=== PATIENT | male | born 1965 | race Caucasian/White ===

== ENCOUNTER 2017-01-07 08:33 | Emergency (ER) | payer MEDICAID, OTHER ==
[~2017-01-07] VITALS: Ht 170.2 cm; Wt 98.5 kg
[2017-01-07 08:42] VITALS: Ht 170.2 cm; Wt 98.5 kg
[2017-01-07] MEDS ORDERED: KETOROLAC 30 MG INJ IV STA (09:36)
[2017-01-07] MEDS ORDERED: SOD CHLORIDE 0.9% 1,000 ML IV ONE (10:00)
[2017-01-07] MEDS ORDERED: DIPHENHYDRAMINE 50 MG INJ IV ONE (10:00)
[2017-01-07] MEDS ORDERED: METOCLOPRAMIDE 10 MG INJ IV ONE (10:00)
--- NOTE | 2017-01-07 10:07 | RADRPT ---
PROCEDURE: CT brain without contrast CLINICAL INDICATION: Headache, blurry vision TECHNIQUE: CT of the brain without contrast was performed on a multidetector CT scanner, with multi planar reformats. One or more of the following dose reduction techniques were used: Automated expos ure control, adjustment in mA and / or kV according to patient size, use of iterative reconstructive technique. CTDIvol = 44 mGy; DLP = 720 mGy-cm. COMPARISON: None available FINDINGS: No acute intracranial hemorrhage is identified. No extra-axial fluid collection is seen. There is no mass effect. No midline shift is identified. Ventricles and sulci are within normal limits for size and configuration. The density of the brain is within normal limits. Sarabia-white differentiation is preserved. Atheros clerotic calcifications are seen at the intracranial internal carotid arteries. Osseous structures are unremarkable. Mastoid air cells and imaged paranasal sinuses grossly clear. IMPRESSION: No evidence of acute intracranial pathology. RPTAT: VV .Krystian Anne MD, Date Time Electronically viewed and signed by .Krystian Anne MD, on 01/07/2017 10:07 .O/
--- NOTE | 2017-01-07 10:45 | ERD ---
ER Documentation Chief Complaint Date/Time DATE: 01/07/17 TIME: 10:43 Chief Complaint CHRONIC HEADACHE TO RIGHT SIDE. NO TRAUMA. HPI This is a 51-year-old male presents emergency department for headache 1 year patient states he has had daily. Headaches for the past year mainly to the right side of his head. Pain radiates down to his neck. Patient is also had blurry vision for the past 2-3 months. Denies any numbness or tingling. No loss of sensation to extremities. Denies any weakness or facial droop. No chest pain, shortness of breath or difficulty breathing. No change in mood or behavior. No injury or trauma to head. Patient has not been seen by provider for this yet. ROS All systems reviewed and are negative except as per history of present illness. Medications Home Meds Active Scripts Ntmoyurribfrx-Llsdeevabg-Upikrpys-Codeine* (Fioricet w/Codeine*) [id number] -30MG Cap, 1 CAP PO Q4H Y for PAIN LEVEL 1-5, #10 CAP Prov:CHARLEY DIAZ NP 01/07/17 Allergies Allergies: Coded Allergies: No Known Allergy (Unverified , 01/07/17) PMhx/Soc Medical and Surgical Hx: pt denies Medical Hx, pt denies Surgical Hx Physical Exam Vitals Vital Signs Date Time Temp Pulse Resp B/P Pulse Ox O2 Delivery O2 Flow Rate FiO2 01/07/17 12:02 60 18 112/66 98 Room Air 01/07/17 08:42 98.7 68 19 135/79 99 Physical Exam Const: No acute distress, alert and smiling during exam. Oriented to person place and time. Head: Atraumatic Eyes: Normal Conjunctiva, PERRL, EOMs intact, no nystagmus, ENT: Normal External Ears, Nose and Mouth. Neck: Full range of motion..~ No meningismus. Resp: Clear to auscultation bilaterally. No wheezing, rhonchi or crackles. No stridor or labored breathing. Cardio: Regular rate and rhythm, no murmurs Abd: Soft, non tender, non distended. Normal bowel sounds Skin: No petechiae or rashes Back: No midline or flank tenderness Ext: No cyanosis, or edema Neur: Awake and alert Psych: Normal Mood and Affect Results 24 hrs Current Medications Medications (Trade) Dose Ordered Sig/Enrique Route PRN Reason Start Time Stop Time Status Last Admin Dose Admin Diphenhydramine HCl (Benadryl) 25 mg ONCE ONCE IV 01/07/17 10:00 01/07/17 10:01 DC 01/07/17 09:59 Metoclopramide HCl (Reglan) 10 mg ONCE ONCE IV 01/07/17 10:00 01/07/17 10:01 DC 01/07/17 09:51 Ketorolac Tromethamine 30 mg 30 mg ONCE STAT IV 01/07/17 09:36 01/07/17 09:39 DC 01/07/17 09:52 Sodium Chloride (NS) 1,000 ml @ 1,000 mls/hr Q1H ONCE IV 01/07/17 10:00 01/07/17 11:08 DC 01/07/17 09:51 Acetam/Butalbital/ Caffeine/Codeine (Fioricet/ Codeine) 1 cap ONCE ONCE PO 01/07/17 11:30 01/07/17 11:31 DC 01/07/17 11:17 Procedures/MDM ED course Patient: JANAE JOEL : 1965 Age: 51 Sex: M MR #: [id number] DOS: 01/07/17 0936 Ordering MD: CHARLEY DIAZ NP Location: [facility] Room/Bed: PROCEDURE: CT brain without contrast CLINICAL INDICATION: Headache, blurry vision TECHNIQUE: CT of the brain without contrast was performed on a multidetector CT scanner, with multiplanar reformats. One or more of the following dose reduction techniques were used: Automated exposure control, adjustment in mA and / or kV according to patient size, use of iterative reconstructive technique. CTDIvol = 44 mGy; DLP = 720 mGy-cm. COMPARISON: None available FINDINGS: No acute intracranial hemorrhage is identified. No extra-axial fluid collection is seen. There is no mass effect. No midline shift is identified. Ventricles and sulci are within normal limits for size and configuration. The density of the brain is within normal limits. Sarabia-white differentiation is preserved. Atherosclerotic calcifications are seen at the intracranial internal carotid arteries. Osseous structures are unremarkable. Mastoid air cells and imaged paranasal sinuses grossly clear. IMPRESSION: No evidence of acute intracranial pathology. MDM: 51 year old male presents to ER for headache x 1.5 years. Patient states he has had a right sided headache for the past 1.5 years. No recent head injury or trauma. Patient states pain "got worse" and therefore came to the ER for evaluation. Patient states he has had bilateral blurry vision for the past 3 months. No weakness or facial droop. No chest pain or shortness of breath. EKG shows sinus bradycardia with HR 53 bpm as interpreted by Dr. Anguiano. IV access obtained and patient given 1L fluid bolus of normal saline. Patient also given Toradol, Reglan and Benadryl. Upon reassessment, patient states headache has improved however is concerned because it has not resolved. CT head reviewed by radiolosit as no evidence of acute intracranial pathology. Patient was then given 1 dose of Fioricet w/ codeine while in the ED. Vital signs are stable. Patient is calm and cooperative thorughotu ED visit. Low suspicion for intracranial hemorrhage, mass, CVA or TIA. Differential diagnosis includes but not limited to tension headache, migraine headache, cluster headache, sinus headache and TMD. Patient is appropriate for outpatient management and will be discharged with prescription for Fioricet w/ codeine #10. Instructed patient to follow up with PCP in the next 2-3 days for reassessment. Return to ED for any new or worsening symptoms. Patient verbalizes understanding. All questions answered at discharge. Departure Diagnosis: Primary Impression: Headache Headache chronicity pattern: chronic headache Intractability: not intractable Condition: Stable CHARLEY DIAZ NP January 07, 2017 10:45
[2017-01-07] MEDS ORDERED: ACET/BUTAL/CAFF/CODEINE CAP PO ONE (11:30)
[2017-01-07] MEDS ORDERED: ABCC1C PO (11:41)
[2017-01-07 12:02] VITALS: BP 112/66; PULSE 60; RESP 18
== END 2017-01-07 12:04 | disposition home or self-care (01) ==
LOC: FTE 08:33
DX: R51 Headache (principal)
CPT/HCPCS: 70450; 93005; 96374; 96375; J1200; J1885; J2765; J7030; Z7502; Z7610

== ENCOUNTER 2018-07-28 06:39 | Emergency (ER) | END 2018-07-28 09:44 | disposition home or self-care (01) ==

== ENCOUNTER 2018-07-29 07:12 | Emergency (ER) | END 2018-07-29 10:37 | disposition home or self-care (01) ==

== ENCOUNTER 2018-08-21 03:04 | Emergency (ER) | END 2018-08-21 06:00 | disposition home or self-care (01) ==